=== PATIENT | female | born 1940 | race Two or more races ===

== ENCOUNTER 2019-08-16 12:37 | Outpatient (CLI) | payer OTHER | END 2019-08-16 12:43 | disposition home or self-care (01) | LOC: SONOGRAMA 12:37 | DX: N60.12 Diffuse cystic mastopathy of left breast (principal); N63.11 Unspecified lump in the right breast, upper outer quadrant ==

== ENCOUNTER 2019-10-12 10:09 | Outpatient (CLI) | payer OTHER ==
[~2019-10-12 10:09] MED LIST: RAZADYNE ER16 MG PO
== END 2019-10-12 10:12 | disposition home or self-care (01) ==
LOC: TOM 10:09
DX: L03.327 Acute lymphangitis of buttock (principal); L72.8 Other follicular cysts of the skin and subcutaneous tissue

== ENCOUNTER 2019-10-15 06:55 | Day surgery (SDC) | payer OTHER | END 2019-10-15 18:25 | disposition home or self-care (01) | LOC: CIR.AMB 06:55 | DX: C50.411 Malignant neoplasm of upper-outer quadrant of right female breast (principal) ==